=== PATIENT | female | born 1980 | race Caucasian/White ===

== ENCOUNTER → 2021-06-24 | Outpatient (CLI) | payer OTHER ==
[~2021-06-24] MED LIST: NO HOME MEDICATIONS; NORCO 325 MG-7.1 TAB PO; PERCOCET 325 MG1 TA2 PO; VICODIN 5/5001 UDTAB PO
== END ==
LOC: MC.RAD 08:56
DX: N63.22 Unspecified lump in the left breast, upper inner quadrant (principal)